=== PATIENT | female | born 2000 | race Caucasian/White ===

== ENCOUNTER 2024-05-06 00:11 | Emergency (ER) | payer MEDICAID ==
[~2024-05-06] VITALS: Ht 185.4 cm; Wt 160.0 kg
[2024-05-06] MEDS ORDERED: CYCLOBENZAPRINE HCL 10 MG TAB PO ONE (00:30)
[2024-05-06 00:34] LABS: HEMATOCRIT 39.8 % (35.0-50.0); HEMOGLOBIN 13.8 g/dL (12.0-18.0); MCH 29.7 (27-36); MCHC 34.8 g/dl (30-36); MCV 85.6 fl (81-99); PLATELET COUNT 242 K/uL (140-440); RBC 4.66 M/ul (4.3-5.7); RDW 13.1 (10.5-15.0)
[2024-05-06 00:46] LABS: BASOPHILS, MANUAL DIFF 1; LYMPHOCYTES, MANUAL DIFF 52; MONOCYTES, MANUAL DIFF 5; NEUTROPHILS, MANUAL DIFF 42
[2024-05-06 00:51] LABS: ALBUMIN 3.4 g/dL (3.4-5.0); ALBUMIN/GLOBULIN RATIO 0.89 (1.1-2.4); ANION GAP 11.8 (7-21); BILIRUBIN, TOTAL 0.3 ng/dL (0.2-1.0); BUN/CREATININE RATIO 10.57 (6.0-28.6); CALCIUM 9.1 mg/dL (8.5-10.1); CREATININE, SERUM 1.04 mg/dL (0.55-1.02); MAGNESIUM 1.9 mg/dL (1.8-2.4); POTASSIUM 3.8 mmol/L (3.5-5.1); PROTEIN, TOTAL 7.2 g/dL (6.4-8.2)
[2024-05-06] MEDS ORDERED: CYCLOBENZAPRINE10 MG PO (01:02)
[2024-05-06 01:13] VITALS: BP 127/90
[2024-05-06] MEDS ORDERED: CYCLOBENZAPRINE HCL 10 MG HOME.PACK PO ONE (01:15)
--- NOTE | 2024-05-06 20:33 | EKG ---
[facility] [address] [facility] [place] [address] Signed Normal sinus rhythm Normal ECG No previous ECGs available Confirmed by Rashel Arriaga MD ([id number]) on 05/06/2024 8:33:05 PM Electronically Signed By: RASHEL ARRIAGA MD 05/06/242032 PATIENT NAME: DARRON STARK Electrocardiogram DATE OF : [birth year] PHYSICIAN: RASHEL ARRIAGA MD REPORT #: [id number] REPORT IS CONFIDENTIAL AND NOT TO BE RELEASED WITHOUT AUTHORIZATION
== END 2024-05-06 01:13 | disposition home or self-care (01) ==
LOC: ED 00:11
PROVIDERS: Family Medicine
DX: R07.89 Other chest pain (principal)
CPT/HCPCS: 36415; 71045; 80053; 83735; 84484; 85025; 93005; 93010; 99285-25

== ENCOUNTER 2024-06-14 21:00 | Emergency (ER) | payer MEDICAID ==
[~2024-06-14] VITALS: Ht 185.4 cm; Wt 158.8 kg
[~2024-06-14 21:00] MED LIST: CYCLOBENZAPRINE10 MG PO
[2024-06-14] MEDS ORDERED: ondansetron HCL 4 MG/2 ML VIAL IV ONE (21:30)
[2024-06-14] MEDS ORDERED: SODIUM CHLORIDE 0.9% 500 ML IV ONE (21:30)
[2024-06-14 21:48] LABS: BASOPHILS 0.4 % (0-2); EOSINOPHILS 1.1 % (0-6); HEMATOCRIT 42.2 % (35.0-50.0); HEMOGLOBIN 14.3 g/dL (12.0-18.0); LYMPHOCYTES 45.6 % (24-44); MCH 29.3 (27-36); MCHC 33.8 g/dl (30-36); MCV 86.4 fl (81-99); NEUTROPHILS 46.9 % (39-80); PLATELET COUNT 249 K/uL (140-440); RBC 4.88 M/ul (4.3-5.7)
[2024-06-14] MEDS ORDERED: FAMOTIDINE 20 MG/ 2 ML VIAL IV ONE (22:00)
[2024-06-14 22:03] LABS: ALBUMIN 3.4 g/dL (3.4-5.0); ALBUMIN/GLOBULIN RATIO 0.85 (1.1-2.4); ANION GAP 5.9 (7-21); BILIRUBIN, TOTAL 0.2 ng/dL (0.2-1.0); BUN/CREATININE RATIO 12.08 (6.0-28.6); CALCIUM 9.4 mg/dL (8.5-10.1); CREATININE, SERUM 0.91 mg/dL (0.55-1.02); MAGNESIUM 1.9 mg/dL (1.8-2.4); POTASSIUM 3.9 mmol/L (3.5-5.1); PROTEIN, TOTAL 7.4 g/dL (6.4-8.2)
[2024-06-14] MEDS ORDERED: ONDANSETRON ODT4 MG PO (22:17)
[2024-06-14] MEDS ORDERED: PRILOSEC OTC20 MG PO (22:17)
[2024-06-14] MEDS ORDERED: ONDANSETRON 4 MG HOME.PACK SL ONE (22:30)
[2024-06-14 22:39] VITALS: BP 108/78
== END 2024-06-14 22:39 | disposition home or self-care (01) ==
LOC: ED 21:00
PROVIDERS: Internal Medicine
DX: A05.9 Bacterial foodborne intoxication, unspecified (principal)
CPT/HCPCS: 36415; 80053; 83690; 83735; 84703; 85025; 96374; 96375; 99284-25; A9270; J2405; J7040